=== PATIENT | male | born 1985 | race Caucasian/White ===

== ENCOUNTER 2018-12-22 18:20 | Emergency (ER) | payer SELFPAY ==
[~2018-12-22] VITALS: Ht 175.3 cm; Wt 68.0 kg
--- OUTSIDE RECORDS SUMMARY | 2018-12-22 18:23 | XMS REPORT ---
Author Author [facility] Address Unknown Phone Unavailable Care Team Providers Care Software Licensing Analyst Name Role Phone Unavailable Unavailable Payers Payer Name Policy Type Policy Number Effective Date Expiration Date Problems This patient has no known problems. Allergies, Adverse Reactions, Alerts Allergy Name Allergy Type Status Severity Reaction(s) Onset Date Inactive Date Treating Clinician Comments No Known Allergies DA Active U 2012-10-17 00:00:00 Medications This patient has no known medications. Encounters Start Date/Time End Date/Time Encounter Type Admission Type Attending Clinicians Care Facility Care Department Encounter ID 2017-09-29 06:37:49 2017-09-29 06:37:49 Emergency [facility] [id number] 2017-09-29 05:16:39 2017-09-29 05:16:39 Emergency [facility] [id number]
[2018-12-22] MEDS ORDERED: DEXTROSE 50% SYRINGE 50 ML IV STA (18:24)
[2018-12-22] MEDS ORDERED: SODIUM CHLORIDE 0.9% 1000ML 1,000 ML IV STA (18:24)
[2018-12-22] MEDS ORDERED: LEVETIRACETAM 500MG/5ML VIAL 1,000 MG in SODIUM CHLORIDE 0.9% 100 ML 100 ML IV ONE (18:45)
[2018-12-22] MEDS ORDERED: LEVETIRACETAM 500 MG/5 ML VIAL IV ONE (18:45)
[2018-12-22 18:47] LABS: BASOPHILS % 0.6 % (0.0-1.0); EOSINOPHILS # (AUTO) 0.1 (0.0-0.4); EOSINOPHILS % 1.3 % (0.0-6.0); HEMATOCRIT 41.2 % (38.2-49.6); HEMOGLOBIN 13.9 g/dL (14.0-18.0); LYMPHOCYTES # (AUTO) 2.7 (1.0-3.2); LYMPHOCYTES % 39.1 % (18.0-39.1); MEAN CORPUSCULAR HEMOGLOBIN 28.4 pg (28-32); MEAN CORPUSCULAR HGB CONC 33.7 g/dL (31-35); MEAN CORPUSCULAR VOLUME 84.3 fL (81-99); MONOCYTES # (AUTO) 0.6 (0.2-0.8); MONOCYTES % 8.6 % (4.4-11.3); NEUTROPHILS # (AUTO) 3.5 (2.1-6.9); NEUTROPHILS % 50.1 % (38.7-80.0); PLATELET COUNT 360 x10e3/uL (140-360); RED BLOOD COUNT 4.89 x10e6/uL (4.3-5.7); RED CELL DISTRIBUTION WIDTH 12.4 % (11.7-14.4)
[2018-12-22] MEDS ORDERED: SODIUM CHLORIDE 0.9% 100 ML ONE (18:47)
[2018-12-22 19:04] LABS: PARTIAL THROMBOPLASTIN TIME 30.2 seconds (23.8-35.5)
[2018-12-22 19:07] LABS: INR 0.97; PROTHROMBIN TIME 13.4 seconds (11.9-14.5)
[2018-12-22 19:11] LABS: ALANINE AMINOTRANSFERASE 18 IU/L (0-55); ALBUMIN 3.6 g/dL (3.5-5.0); ALKALINE PHOSPHATASE 98 IU/L (40-150); ANION GAP 16.6 mmol/L (8-16); BLOOD UREA NITROGEN 8 mg/dL (7-26); BUN/CREATININE RATIO 10 (6-25); CALCIUM 9.3 mg/dL (8.4-10.2); CARBON DIOXIDE 22 mmol/L (22-29); CHLORIDE 105 mmol/L (98-107); CREATINE KINASE 164 IU/L (30-200); CREATININE, SERUM 0.83 mg/dL (0.72-1.25); EST GLOMERULAR FILTRATION RATE > 60 ML/MIN (60-); GLUCOSE 78 mg/dL (74-118); POTASSIUM 3.6 mmol/L (3.5-5.1); SODIUM 140 mmol/L (136-145)
--- NOTE | 2018-12-22 19:11 | Diagnostic Imaging Report ---
EXAMINATION: CHEST SINGLE (PORTABLE) INDICATION: Seizure ^ERMD ORDER ^[id number] ^1901 ^Y COMPARISON: None FINDINGS: TUBES and LINES: None. LUNGS: Lungs are well inflated. Lungs are clear. There is no evidence of pneumonia or pulmonary edema. PLEURA: No pleural effusion or pneumothorax. HEART AND MEDIASTINUM: The cardiomediastinal silhouette is unremarkable. BONES AND SOFT TISSUES: No acute osseous lesion. Soft tissues are unremarkable. UPPER ABDOMEN: No free air under the diaphragm. IMPRESSION: No acute thoracic abnormality. Signed by: Dr. Trey Sexton M.D. on 12/22/2018 7:07 PM
[2018-12-22] MEDS ORDERED: LITHIUM CARBON300 MG PO (19:18)
[2018-12-22] MEDS ORDERED: KEPPRA500 MG PO (19:18)
[2018-12-22] MEDS ORDERED: TRAZODONE HCL50 MG PO (19:18)
--- NOTE | 2018-12-22 19:20 | Diagnostic Imaging Report ---
EXAMINATION: Head CT HISTORY: Seizures, hit the back of the head, hypoglycemia, COMPARISON: None. TECHNIQUE: Multidetector axial images were obtained without contrast from the foramen magnum to the vertex . The images were reconstructed using brain and bone algorithms. Thin section brain images were reformatted into coronal and sagittal planes. Image quality: Motion/streaking artifact limits the evaluation of the study at multiple levels. Dose modulation, iterative reconstruction, and/or weight based adjustment of the mA/kV was utilized to reduce the radiation dose to as low as reasonably achievable. FINDINGS: Parenchyma: 1. No abnormal densities. 2. No mass or hemorrhage. No CT evidence of acute territorial vascular insult. Extra-axial spaces:No abnormal density. No extra-axial fluid collections Brain volume: Normal for age. Ventricles: No hydrocephalus or displacement. Arteries: No density suggestive of thrombus. Dural sinuses: No abnormal density. Extra-axial spaces: No abnormal density. Foramen magnum: No mass, Chiari malformation, or basilar invagination. Sella: No obvious mass. Paranasal/mastoid sinuses: Imaged portions unremarkable. Skull/Scalp: No lytic or blastic lesions. No fractures. IMPRESSION: Suboptimal study due patient's motion, grossly no acute intracranial abnormalities, particularly no mass, hemorrhage or hydrocephalus. Signed by: Dr. Sade Quiles M.D. on 12/22/2018 7:17 PM
[2018-12-22] MEDS ORDERED: NALOXONE HCL INJ 0.4 MG/ML AMP ONE (20:06)
[2018-12-22] MEDS ORDERED: AMMONIA AROMATIC INHAL 0.33 ML AMP INH ONE (20:07)
[2018-12-22] MEDS ORDERED: NALOXONE HCL 2MG/2 ML SYRINGE IV ONE (20:15)
[2018-12-22 21:16] VITALS: BP 115/67
== END 2018-12-22 20:30 | disposition home or self-care (01) ==
LOC: ER 18:20
DX: G40.409 Other generalized epilepsy and epileptic syndromes, not intractable, without status epilepticus (principal); F17.210 Nicotine dependence, cigarettes, uncomplicated
CPT/HCPCS: 36415; 70450; 71045; 80053; 82542; 82550; 82553; 82948; 84484; 85025; 85610; 85730; 93005; 99284; J1953; J7030; J7050; J2310